=== PATIENT | male | born 1980 | race Caucasian/White ===

== ENCOUNTER → 2016-11-21 | Outpatient (CLI) | payer OTHER | LOC: FIMAGING 15:22 | PROVIDERS: ATTEND Family Medicine | DX: M79.645 Pain in left finger(s) (principal); W19.XXXA Unspecified fall, initial encounter ==

== ENCOUNTER → 2017-02-19 | Outpatient (CLI) | payer OTHER | LOC: FIMAGING 16:07 | PROVIDERS: ATTEND Family Medicine | DX: M79.642 Pain in left hand (principal); R93.6 Abnormal findings on diagnostic imaging of limbs ==